=== PATIENT | male | born 1965 | race Caucasian/White ===

== ENCOUNTER 2020-07-17 17:12 | Emergency (ER) | payer OTHER ==
[2020-07-17 18:02] VITALS: BP 141/82; PULSE 102
[2020-07-17] MEDS ORDERED: Sodium Chloride 0.9% 10 ML Syringe FLUSH PRN (18:03)
--- NOTE | 2020-07-17 18:05 | EDM.PDOC ---
ED HPI GENERAL MEDICAL PROBLEM - General Chief Complaint: Abdominal Pain Stated Complaint: PANCREATITIS/TEETH Time Seen by Provider: 07/17/20 18:00 Source of Information: Reports: Patient - History of Present Illness INITIAL COMMENTS - FREE TEXT/NARRATIVE: Denny is a 55-year-old male presenting to the ED for evaluation of worsening dental infection in the left upper jaw causing pain and swelling in the left face as well as a flare of his pancreatitis. Patient has a history of chronic biliary pancreatitis and feels epigastric discomfort. He tried his home pain medicine which is Dilaudid without relief. He has had some mild nausea that is gone away with Phenergan. He denies any fever or chills. The pain in the jaw has worsened making it difficult for him to function, eat, or sleep. He was put on amoxicillin by his dentist after extracting tooth #16. Abdomen Pain Score (Numeric/FACES): 9 Face/Facial Pain Score (Numeric/FACES): 9 - Related Data Allergies Allergy/AdvReac Type Severity Reaction Status Date / Time venom-honey bee Allergy Severe Anaphylactic Verified 07/17/20 17:58 [bee venom (honey bee)] Shock ketorolac tromethamine Allergy Intermediate Swollen Verified 07/17/20 17:58 [From Toradol] Tongue meperidine Allergy Mild Hives Verified 07/17/20 17:58 methadone [Methadone] Allergy Mild Itching Verified 07/17/20 17:58 levorphanol [Levorphanol] AdvReac Vomiting Verified 07/17/20 17:58 morphine AdvReac Cannot Verified 07/17/20 17:58 Remember tramadol AdvReac Hallucinati Verified 07/17/20 17:58 ons Home Meds: Home Meds Albuterol Sulfate [Proair Hfa] 2 puff IH QID PRN 03/06/16 [History] EPINEPHrine [Epipen] 0.3 mg IM ASDIRECTED 03/06/16 [History] Fluocinonide [Lidex 0.05% Crm] 30 gm TOP BID PRN 03/06/16 [History] HYDROmorphone [Dilaudid] 2 mg PO ASDIRECTED PRN 03/06/16 [History] Lipase/Protease/Amylase [Viokace 20,880-78,300 Units Tb] 3 tab PO ASDIRECTED 03/06/16 [History] Promethazine [Phenergan] 25 mg PO Q6H PRN 03/06/16 [History] Clindamycin HCl 300 mg PO TID #30 capsule 07/17/20 [Rx] Past Medical History Respiratory History: Reports: Asthma Gastrointestinal History: Reports: GERD, Pancreatitis, Other (See Below) Other Gastrointestinal History: Chronic biliary pancreatitis (HCC) Musculoskeletal History: Reports: Neck Pain, Chronic, Other (See Below) Other Musculoskeletal History: Cervical fracture Neurological History: Reports: Concussion Dermatologic History: Reports: Eczema - Infectious Disease History Infectious Disease History: Reports: Chicken Pox, Measles, Mumps, Rubella - Past Surgical History GI Surgical History: Reports: ERCP Neurological Surgical History: Reports: C-Spine Social & Family History - Family History Family Medical History: No Pertinent Family History - Tobacco Use Tobacco Use Status *Q: Former Tobacco User Used Tobacco, but Quit: Yes Month/Year Tobacco Last Used: 2 years - Caffeine Use Caffeine Use: Reports: Coffee - Recreational Drug Use Recreational Drug Use: No ED ROS GENERAL - Review of Systems Review Of Systems: See Below Constitutional: Reports: No Symptoms HEENT: Reports: Dental Pain (Involving a recently pulled molar in the left upper jaw, tooth #16), Other (Swelling of the right maxillary face) Respiratory: Reports: No Symptoms Cardiovascular: Reports: No Symptoms Endocrine: Reports: No Symptoms GI/Abdominal: Reports: Abdominal Pain (Mild epigastric pain), Nausea Musculoskeletal: Reports: No Symptoms Skin: Reports: No Symptoms Neurological: Reports: No Symptoms Psychiatric: Reports: No Symptoms Hematologic/Lymphatic: Reports: No Symptoms Immunologic: Reports: No Symptoms ED EXAM, GI/ABD - Physical Exam Exam: See Below Exam Limited By: No Limitations General Appearance: Alert, Anxious, Mild Distress Eyes: Bilateral: EOMI Nose: Other (Severe tenderness to percussion over the left maxillary sinus.) Throat/Mouth: Normal Inspection, Normal Oropharynx, Inflammation (Swelling of the gums around tooth #16 that has been extracted. There is considerable tenderness with palpation of this region.) Head: Facial Swelling (Mild swelling over the left t maxillary sinus.) Neck: Supple, Non-Tender, Full Range of Motion, Lymphadenopathy (L) Respiratory/Chest: No Respiratory Distress, Lungs Clear, Normal Breath Sounds, No Accessory Muscle Use Cardiovascular: Normal Peripheral Pulses, Regular Rate, Rhythm, No JVD, No Murmur GI/Abdominal Exam: Normal Bowel Sounds, Soft, No Organomegaly, No Distention, Tender (Mild epigastric tenderness) (Male) Exam: Deferred Rectal (Males) Exam: Deferred Back Exam: Normal Inspection, Full Range of Motion Extremities: Normal Inspection, Normal Range of Motion Neurological: Alert, Oriented, No Motor/Sensory Deficits Psychiatric: Normal Affect, Normal Mood Skin Exam: Warm, Dry Course - Vital Signs Last Recorded V/S: Last Vital Signs Temp 37.9 C 07/17/20 18:02 Pulse 102 H 07/17/20 18:02 Resp 20 07/17/20 18:02 BP 141/82 H 07/17/20 18:02 Pulse Ox 96 07/17/20 18:02 - Orders/Labs/Meds Orders: Active Orders 24 hr Category Date Time Status Sodium Chloride 0.9% [Saline Flush] Med 07/17/20 18:03 Active 10 ml FLUSH ASDIRECTED PRN Saline Lock Insert [OM.PC] Routine Oth 07/17/20 18:03 Ordered Medication Orders Sodium Chloride (Saline Flush) 10 ml FLUSH ASDIRECTED PRN PRN Reason: Keep Vein Open Last Admin: 07/17/20 18:33 Dose: 10 ml Documented by: RONDA Labs: Laboratory Tests 07/17/20 07/17/20 Range/Units 18:23 18:23 WBC 8.4 (4.5-11.0) K/uL RBC 4.77 (4.30-5.90) M/uL Hgb 14.1 (12.0-15.0) g/dL Hct 42.2 (40.0-54.0) % MCV 89 (80-98) fL MCH 30 (27-31) pg MCHC 33 (32-36) % Plt Count 175 (150-400) K/uL Neut % (Auto) 68 H (36-66) % Lymph % (Auto) 24 (24-44) % [place] % (Auto) 8 H (2-6) % Eos % (Auto) 0 L (2-4) % Baso % (Auto) 0 (0-1) % Sodium 133 L (140-148) mmol/L Potassium 4.0 (3.6-5.2) mmol/L Chloride 97 L (100-108) mmol/L Carbon Dioxide 27 (21-32) mmol/L Anion Gap 13.0 (5.0-14.0) mmol/L BUN 11 (7-18) mg/dL Creatinine 0.9 (0.8-1.3) mg/dL Est Cr Clr Drug Dosing 78.77 mL/min Estimated GFR (MDRD) > 60 (>60) Glucose 90 (74-106) mg/dL Calcium 8.9 (8.5-10.1) mg/dL Total Bilirubin 0.5 (0.2-1.0) mg/dL AST 21 (15-37) U/L ALT 20 (12-78) U/L Alkaline Phosphatase 92 (46-116) U/L C-Reactive Protein 6.58 H (0.0-0.3) mg/dL Total Protein 7.6 (6.4-8.2) g/dL Albumin 3.8 (3.4-5.0) g/dL Globulin 3.8 H (2.3-3.5) g/dL Albumin/Globulin Ratio 1.0 L (1.2-2.2) Lipase 394 H (73-393) U/L Meds: Medications Generic Name Dose Route Start Last Admin Trade Name Freq PRN Reason Stop Dose Admin Sodium Chloride 10 ml 07/17/20 18:03 07/17/20 18:33 Saline Flush FLUSH 10 ml ASDIRECTED PRN Administration Keep Vein Open Discontinued Medications Generic Name Dose Route Start Last Admin Trade Name Freq PRN Reason Stop Dose Admin Clindamycin HCl 300 mg 07/17/20 18:16 07/17/20 18:30 Cleocin PO 07/17/20 18:17 300 mg ONETIME ONE Administration Ketorolac Tromethamine 30 mg 07/17/20 18:16 07/17/20 18:30 Toradol IVPUSH 07/17/20 18:17 30 mg ONETIME ONE Administration - Re-Assessments/Exams Free Text/Narrative Re-Assessment/Exam: Denny is a 55-year-old male with chronic biliary pancreatitis who is having a small flare. His lipase is mildly elevated at 396 which is 1 tic above normal. He may continue to take his home pain medication as before. He did improve after getting Toradol 30 mg IV. As for his dental infection, the patient has been on amoxicillin but despite this has had worsening symptoms. We will switch him to clindamycin 300 mg 3 times daily. First dose was given in the ED with prescription in hand to fill in the morning and continue. This should treat not only the dental infection but also should help eliminate the sinusitis which is likely arising from the dental infection. The patient may continue to take ibuprofen as this will not interfere with his pancreatic function but will help reduce pain and swelling. At this time he suitable for discharge home. Indications return to the ED were discussed and all questions were answered prior to discharge. Departure - Departure Time of Disposition: 19:54 Disposition: Home, Self-Care 01 Condition: Good Clinical Impression: Chronic biliary pancreatitis, Dental infection, Left maxillary sinusitis - Discharge Information *PRESCRIPTION DRUG MONITORING PROGRAM REVIEWED*: No *COPY OF PRESCRIPTION DRUG MONITORING REPORT IN PATIENT ARIES: Not Applicable Prescriptions: Clindamycin HCl 300 mg PO TID #30 capsule Instructions: Chronic Pancreatitis, Dental Abscess, [id number], Sinusitis, Adult Referrals: PCP,None [Primary Care Provider] - Forms: ED Department Discharge Care Plan Goals: We are starting you on on clindamycin 300 mg 3 times a day for 10 days to treat the dental infection and maxillary sinusitis. This should not interfere with your pancreas. Continue to take your pain and nausea medication at home as needed. Return if you develop any significant fever, difficulty swallowing, swelling of the neck, difficulty breathing, or your pain becomes uncontrolled. Sepsis Event Note (ED) - Focused Exam Vital Signs: Vital Signs Temp Pulse Resp BP Pulse Ox 07/17/20 18:02 37.9 C 102 H 20 141/82 H 96 07/17/20 18:00 37.9 C 102 H 20 141/82 H 96 - Problem List & Annotations (1) Chronic biliary pancreatitis SNOMED Code(s): 337866264 Code(s): K86.1 - OTHER CHRONIC PANCREATITIS Status: Chronic Priority: Medium Current Visit: Yes (2) Dental infection SNOMED Code(s): 969360895 Code(s): K04.7 - PERIAPICAL ABSCESS WITHOUT SINUS Status: Acute Priority: Medium Current Visit: Yes (3) Left maxillary sinusitis SNOMED Code(s): 12913674 Code(s): J32.0 - CHRONIC MAXILLARY SINUSITIS Status: Acute Priority: Medium Current Visit: Yes - Problem List Review Problem List Initiated/Reviewed/Updated: Yes - My Orders Last 24 Hours: My Active Orders 07/17/20 18:03 Sodium Chloride 0.9% [Saline Flush] 10 ml FLUSH ASDIRECTED PRN Saline Lock Insert [OM.PC] Routine - Assessment/Plan Last 24 Hours: My Active Orders 07/17/20 18:03 Sodium Chloride 0.9% [Saline Flush] 10 ml FLUSH ASDIRECTED PRN Saline Lock Insert [OM.PC] Routine
[2020-07-17] MEDS ORDERED: Ketorolac 30 MG/ML SDV IVPUSH ONE (18:16)
[2020-07-17] MEDS ORDERED: Clindamycin HCl 150 MG Cap PO ONE (18:16)
== END 2020-07-17 20:20 | disposition home or self-care (01) ==
LOC: JP.ED 17:12
DX: K04.7 Periapical abscess without sinus (principal); J32.0 Chronic maxillary sinusitis; K86.1 Other chronic pancreatitis; J45.909 Unspecified asthma, uncomplicated; Z87.891 Personal history of nicotine dependence; Z79.899 Other long term (current) drug therapy; Z91.030 Bee allergy status; Z88.8 Allergy status to other drugs, medicaments and biological substances; Z88.5 Allergy status to narcotic agent
CPT/HCPCS: 36415; 80053; 83690; 85025; 86140; 96374; 99284; A9270; J1885

== ENCOUNTER 2023-05-01 19:28 | Emergency (ER) | payer OTHER ==
[2023-05-01] MEDS ORDERED: Sodium Chloride 0.9% 10 ML Syringe FLUSH PRN (20:09)
[2023-05-01] MEDS ORDERED: Sodium Chloride 0.9% 1,000 ML IV ONE (20:10)
[2023-05-01] MEDS ORDERED: Naloxone 0.4 MG/ML SDV IVPUSH PRN (20:10)
[2023-05-01] MEDS ORDERED: HYDROmorphone 1 MG/ML Syringe IVPUSH ONE (20:10)
[2023-05-01] MEDS ORDERED: Ondansetron 4 MG/2 ML SDV IVPUSH ONE (20:11)
[2023-05-01 20:22] LABS: BASOPHILS PERCENT AUTO 0.3 % (0.1-1.3); EOSINOPHILS ABSOLUTE AUTO 0.08 K/uL (0.00-0.40); EOSINOPHILS PERCENT AUTO 1.3 % (0.0-5.4); HEMATOCRIT 38.7 % (38.4-49.7); HEMOGLOBIN 13.3 g/dL (12.9-16.9); IMMATURE GRAN PERCENT AUTO 0.2 % (0.0-0.7); LYMPHOCYTES ABSOLUTE AUTO 1.59 K/uL (0.8-3.3); LYMPHOCYTES PERCENT AUTO 26.1 % (11.4-47.7); MEAN CORPUSCULAR HEMOGLOBIN 31.1 pg (31.6-35.5); MEAN CORPUSCULAR HGB CONC 34.4 g/dL (31.6-35.5); MEAN CORPUSCULAR VOLUME 90.6 fL (81.4-99.0); MONOCYTES ABSOLUTE AUTO 0.43 K/uL (0.20-0.90); MONOCYTES PERCENT AUTO 7.1 % (3.3-12.6); NEUTROPHILS ABSOLUTE AUTO 3.96 K/uL (1.0-7.6); PLATELET COUNT,PLT 171 K/uL (130-375); RED BLOOD CELL COUNT 4.27 M/uL (4.14-5.76); WHITE BLOOD CELL COUNT,WBC 6.1 K/uL (3.2-11.0)
[2023-05-01 20:23] LABS: BASOPHILS ABSOLUTE AUTO 0.02 K/uL (0.00-0.10); IMMATURE GRAN ABSOLUTE AUTO 0.01 K/uL (0.00-0.23)
[2023-05-01] MEDS ORDERED: Promethazine 12.5 MG in Sodium Chloride 0.9% 50 ML IV ONE (20:30)
[2023-05-01] MEDS ORDERED: Sodium Chloride 0.9% 10 ML Syringe FLUSH ONE (20:39)
[2023-05-01] MEDS ORDERED: Iopamidol 612 MG/ML 100 ML Bottle IV ONE (20:39)
[2023-05-01] MEDS ORDERED: Sodium Chloride 0.9% 50 ML IV ONE (20:39)
[2023-05-01 20:43] LABS: A/G RATIO 1.2 (1.2-2.2); ALANINE AMINOTRANSFERASE,ALT 15 U/L (12-78); ALBUMIN 3.7 g/dL (3.4-5.0); ALKALINE PHOSPHATASE 82 U/L (46-116); ASPARTATE AMNIOTRANSFERASE,AST 12 U/L (15-37); BILIRUBIN TOTAL 0.3 mg/dL (0.2-1.0); BLOOD UREA NITROGEN,BUN 12 mg/dL (7-18); CARBON DIOXIDE,CO2 30 mmol/L (21-32); CHLORIDE,CL 97 mmol/L (100-108); CREATININE 0.9 mg/dL (0.8-1.3); EST CRCL DRUG DOSING (CG) 76.88 mL/min; ESTIMATED GFR 98 mL/min (>60); GLUCOSE RANDOM 92 mg/dL (74-106); POTASSIUM,K 4.2 mmol/L (3.6-5.2); PROTEIN TOTAL,TP 6.9 g/dL (6.4-8.2); SODIUM,NA 133 mmol/L (140-148)
[2023-05-01 20:44] LABS: ANION GAP 10.2 mmol/L (5.0-14.0)
[2023-05-01] MEDS ORDERED: HYDROmorphone 0.5 MG/0.5 ML Syringe IVPUSH ONE ×2 (20:50→22:55)
[2023-05-01] MEDS ORDERED: Pantoprazole 40 MG Vial IVPUSH ONE (21:51)
[2023-05-01] MEDS ORDERED: Aspirin 325 MG Tab.EC PO SCH (22:00)
[2023-05-01 22:58] VITALS: BP 108/70; PULSE 58
== END 2023-05-01 23:16 | disposition home or self-care (01) ==
LOC: JP.ED 19:28
DX: K85.90 Acute pancreatitis without necrosis or infection, unspecified (principal); K86.1 Other chronic pancreatitis; I30.9 Acute pericarditis, unspecified; J45.909 Unspecified asthma, uncomplicated; K21.9 Gastro-esophageal reflux disease without esophagitis; Z91.013 Allergy to seafood; Z88.8 Allergy status to other drugs, medicaments and biological substances; Z88.5 Allergy status to narcotic agent; Z79.02 Long term (current) use of antithrombotics/antiplatelets
CPT/HCPCS: 36415; 74177; 80053; 83605; 83690; 84484; 85025; 85651; 87635; 93005; 96361; 96365; 96375; 96376; 99285; A9270; C9113; J1170; J2550; J3490; J7030; Q9967; U0002

== ENCOUNTER 2023-07-11 10:31 | Emergency (ER) | payer OTHER ==
[2023-07-11 10:41] LABS: BASOPHILS ABSOLUTE AUTO 0.03 K/uL (0.00-0.10); BASOPHILS PERCENT AUTO 0.5 % (0.1-1.3); EOSINOPHILS ABSOLUTE AUTO 0.11 K/uL (0.00-0.40); EOSINOPHILS PERCENT AUTO 1.8 % (0.0-5.4); HEMATOCRIT 43.2 % (38.4-49.7); HEMOGLOBIN 14.9 g/dL (12.9-16.9); IMMATURE GRAN PERCENT AUTO 0.2 % (0.0-0.7); LYMPHOCYTES PERCENT AUTO 31.7 % (11.4-47.7); MEAN CORPUSCULAR HEMOGLOBIN 30.8 pg (31.6-35.5); MEAN CORPUSCULAR HGB CONC 34.5 g/dL (31.6-35.5); MEAN CORPUSCULAR VOLUME 89.4 fL (81.4-99.0); MONOCYTES ABSOLUTE AUTO 0.45 K/uL (0.20-0.90); MONOCYTES PERCENT AUTO 7.5 % (3.3-12.6); NEUTROPHILS PERCENT AUTO 58.3 % (40.0-78.1); PLATELET COUNT,PLT 156 K/uL (130-375); RED BLOOD CELL COUNT 4.83 M/uL (4.14-5.76)
[2023-07-11 10:42] LABS: IMMATURE GRAN ABSOLUTE AUTO 0.01 K/uL (0.00-0.23)
[2023-07-11 11:06] LABS: BLOOD UREA NITROGEN,BUN 12 mg/dL (7-18); C-REACTIVE PROTEIN 0.86 mg/dL (0.0-0.3); CALCIUM 8.9 mg/dL (8.5-10.1); CARBON DIOXIDE,CO2 28 mmol/L (21-32); CHLORIDE,CL 100 mmol/L (100-108); CREATININE 0.9 mg/dL (0.8-1.3); ESTIMATED GFR 98 mL/min (>60); GLUCOSE RANDOM 100 mg/dL (74-106); POTASSIUM,K 4.4 mmol/L (3.6-5.2); SODIUM,NA 138 mmol/L (140-148)
[2023-07-11 11:07] LABS: ANION GAP 14.4 mmol/L (5.0-14.0)
[2023-07-11] MEDS ORDERED: Sodium Chloride 0.9% 75 ML IV ONE (11:40)
[2023-07-11] MEDS ORDERED: Iopamidol 755 Mg/ML 100 ML Bottle IV ONE (11:40)
[2023-07-11] MEDS ORDERED: Sodium Chloride 0.9% 10 ML Syringe FLUSH ONE (11:40)
[2023-07-11 13:08] VITALS: BP 124/78; PULSE 83
== END 2023-07-11 13:25 | disposition home or self-care (01) ==
LOC: JP.ED 10:31
DX: I63.9 Cerebral infarction, unspecified (principal); Z79.02 Long term (current) use of antithrombotics/antiplatelets; Z79.82 Long term (current) use of aspirin; Z79.899 Other long term (current) drug therapy; Z88.5 Allergy status to narcotic agent; Z88.8 Allergy status to other drugs, medicaments and biological substances; Z88.7 Allergy status to serum and vaccine
CPT/HCPCS: 36415; 70450; 70496; 80048; 80307; 82947; 83605; 84484; 85025; 86140; 93005; 93010; 99285; J3490; Q9967